=== PATIENT | female | born 1995 | race Caucasian/White ===

== ENCOUNTER 2020-09-08 01:03 | Emergency (ER) | payer OTHER ==
[2020-09-08] MEDS ORDERED: NORMAL SALINE 1000 ML 1,000 ML IV ONE (01:44)
[2020-09-08] MEDS ORDERED: METOCLOPRAMIDE HCL ORAL SOLN 10 MG/10 ML UDCUP PO ONE (01:45)
--- NOTE | 2020-09-08 01:48 | ER Document Report ---
ED Medical Screen (RME) - General Chief Complaint: Abdominal Pain Stated Complaint: ABDOMINAL PAIN Time Seen by Provider: 09/08/20 01:43 Mode of Arrival: Ambulatory Information source: Patient Notes: 25-year-old primigravida female coming in today with sudden severe left-sided abdominal pain. It started this evening. She is 14 weeks . No contractions. No vaginal bleeding. States that she has had very bad nausea and vomiting during the first trimester. No fevers or chills. General: Nontoxic Cardiac regular rate and rhythm Pulmonary no distress Mild left-sided abdominal tenderness No neuro deficits I have greeted and performed a rapid initial assessment of this patient. A comprehensive ED assessment and evaluation of the patient, analysis of test results and completion of the medical decision making process will be conducted by additional ED providers. Physical Exam - Vital signs Vitals: Temp Pulse Resp BP Pulse Ox 98.5 F 80 18 102/60 100 09/08/20 01:29 09/08/20 01:29 09/08/20 01:29 09/08/20 01:29 09/08/20 01:29 Course - Vital Signs Vital signs: Temp Pulse Resp BP Pulse Ox 98.5 F 80 18 102/60 100 09/08/20 01:29 09/08/20 01:29 09/08/20 01:29 09/08/20 01:29 09/08/20 01:29
[2020-09-08 02:33] LABS: APPEARANCE,URINE SLIGHTLY-CLOUDY; BILIRUBIN,URINE NEGATIVE (NEGATIVE); COLOR,URINE YELLOW; GLUCOSE, URINE NEGATIVE (NEGATIVE); KETONES,URINE NEGATIVE (NEGATIVE); PROTEIN,URINE NEGATIVE (NEGATIVE); URINE SPECIFIC GRAVITY 1.013; UROBILINOGEN,URINE NEGATIVE mg/dL (<2.0)
--- NOTE | 2020-09-08 02:53 | RADIOLOGY REPORT (SQ) ---
EXAM DESCRIPTION: US LIMITED COMPLETED DATE/TME: 09/08/2020 01:44 CLINICAL HISTORY: 25 years, Female, sudden left sided abd pain COMPARISON: None. TECHNIQUE: LIMITATIONS: None. FINDINGS: There is a live 14 week 4 day +/- 1 week IUP in transverse lie. cardiac activity was measured at 150 bpm. The placenta is anterior in location, with no evidence of abruption or previa. The cervix measures 2.6 cm in length and is closed. There is a normal amount of amniotic fluid. IMPRESSION: Unremarkable IUP. copyright 2010 [facility]- All Rights Reserved
[2020-09-08 03:04] LABS: ABSOLUTE BASOPHILS # (AUTO) 0.1 10^3/uL (0.0-0.2); ABSOLUTE EOSINOPHILS # (AUTO) 0.1 10^3/uL (0.0-0.6); ABSOLUTE LYMPHOCYTES (AUTO) 2.8 10^3/uL (0.5-4.7); ABSOLUTE MONOCYTES (AUTO) 0.9 10^3/uL (0.1-1.4); ABSOLUTE NEUT (AUTO) 9.2 10^3/uL (1.7-8.2); BASOPHILS % (AUTO) 0.4 % (0-2); EOSINOPHILS % (AUTO) 0.8 % (0-6); HEMOGLOBIN 12.1 g/dL (12.0-15.5); LYMPHOCYTES % (AUTO) 21.3 % (13-45); MEAN CORPUSCULAR HEMOGLOBIN 29.4 pg (27.0-33.4); MEAN CORPUSCULAR HGB CONC 33.5 g/dL (32.0-36.0); MEAN CORPUSCULAR VOLUME 88 fl (80-97); MONOCYTES % (AUTO) 6.9 % (3-13); PLATELET COUNT 355 10^3/uL (150-450); RED CELL DISTRIBUTION WIDTH 12.7 % (11.5-14.0); SEGMENTED NEUTROPHILS % (AUTO) 70.6 % (42-78); TOTAL CELLS COUNTED % (AUTO) 100 %; WHITE BLOOD COUNT 13.1 10^3/uL (4.0-10.5)
[2020-09-08 03:19] LABS: ALBUMIN 3.8 g/dL (3.5-5.0); ALKALINE PHOSPHATASE 54 U/L (38-126); ANION GAP 8 (5-19); ASPARTATE AMINO TRANSFERASE 27 U/L (14-36); BILIRUBIN,DIRECT 0.1 mg/dL (0.0-0.4); BILIRUBIN,TOTAL 0.2 mg/dL (0.2-1.3); BLOOD UREA NITROGEN 9 mg/dL (7-20); CARBON DIOXIDE 23 mmol/L (22-30); CHLORIDE 106 mmol/L (98-107); GLUCOSE 94 mg/dL (75-110); TOTAL PROTEIN 6.6 g/dL (6.3-8.2)
--- NOTE | 2020-09-08 06:06 | ER Document Report ---
ED GI/ - General Chief Complaint: Abdominal Pain Stated Complaint: ABDOMINAL PAIN Time Seen by Provider: 09/08/20 01:43 Mode of Arrival: Ambulatory Information source: Patient Notes: 25-year-old female who states she is approximately 14 weeks presents to the emergency room with sudden onset of left-sided abdominal pain that started last evening around 11:30 PM. She denies any trauma or injury. No medications for symptoms. Denies any vaginal bleeding, no vaginal discharge. No urinary symptoms. No fevers. States she is up-to-date with her OB care. 1 TRAVEL OUTSIDE OF THE [place] IN LAST 30 DAYS: No - Related Data Allergies/Adverse Reactions: No Known Allergies Allergy (Unverified 09/08/20 01:53) Home Medications: PER-NATALS Past Medical History - General Information source: Patient - Social History Smoking Status: Never Smoker Frequency of alcohol use: None Drug Abuse: None Family History: Reviewed & Not Pertinent Past Surgical History: Reports: Hx Breast Surgery - implants Review of Systems - Review of Systems Constitutional: No symptoms reported EENT: No symptoms reported Cardiovascular: No symptoms reported Respiratory: No symptoms reported Gastrointestinal: Abdominal pain. denies: Diarrhea, Nausea, Vomiting, Constipation Genitourinary: No symptoms reported Female Genitourinary: Musculoskeletal: No symptoms reported Skin: No symptoms reported Neurological/Psychological: No symptoms reported -: Yes All other systems reviewed and negative Physical Exam - Vital signs Vitals: Temp Pulse Resp BP Pulse Ox 98.5 F 80 18 102/60 100 09/08/20 01:29 09/08/20 01:29 09/08/20 01:29 09/08/20 01:29 09/08/20 01:29 - General General appearance: Appears well, Alert In distress: None - Respiratory Respiratory status: No respiratory distress Chest status: Nontender Breath sounds: Normal Chest palpation: Normal - Cardiovascular Rhythm: Regular Heart sounds: Normal auscultation Murmur: No - Abdominal Inspection: Gravid female Distension: No distension Bowel sounds: Normal Tenderness: Nontender Organomegaly: No organomegaly - Back Back: Normal, Nontender. No: CVA tenderness - Neurological Neuro grossly intact: Yes Cognition: Normal Orientation: AAOx4 [place] Coma Scale Eye Opening: Spontaneous Radha Coma Scale Verbal: Oriented Radha Coma Scale Motor: Obeys Commands Radha Coma Scale Total: 15 Speech: Normal Motor strength normal: LUE, RUE, LLE, RLE Sensory: Normal - Skin Skin Temperature: Warm Skin Moisture: Dry Skin Color: Normal Course - Re-evaluation Re-evalutation: 09/08/20 05:58 Patient is afebrile, nontoxic-appearing, pain-free on exam. Reviewed all labs and ultrasound results with patient and family. Can take Tylenol as needed for pain not to exceed 8 tablets in 24 hours. Follow-up with SUGGESTION CLERK next week as scheduled. Patient was given strict return to the emergency room guidelines. Return for any new or worsening symptoms. All questions were answered. Patient verbalized understanding and agrees with plan of care. - Vital Signs Vital signs: Temp Pulse Resp BP Pulse Ox 97.6 F 79 16 95/63 L 98 09/08/20 06:22 09/08/20 06:22 09/08/20 06:22 09/08/20 06:22 09/08/20 06:22 - Laboratory Result Diagrams: 09/08/20 02:45 09/08/20 02:45 Laboratory results interpreted by me: 09/08/20 09/08/20 09/08/20 02:09 02:45 02:45 WBC 13.1 H Absolute Neuts (auto) 9.2 H Sodium 136.9 L Beta HCG, Quant 54354.00 H Urine Ascorbic Acid 40 H - Diagnostic Test Radiology reviewed: Reports reviewed Discharge - Discharge Clinical Impression: Abdominal pain affecting Condition: Stable Disposition: HOME, SELF-CARE Instructions: Pelvic Pain in ([facility]) Additional Instructions: Tylenol as needed for pain not to exceed 8 tablets in 24 hours. Follow-up with your SUGGESTION CLERK as scheduled. Return to the emergency room for any new or worsening symptoms.
[2020-09-08 06:24] VITALS: BP 95/63
== END 2020-09-08 06:24 | disposition home or self-care (01) ==
LOC: ER 01:03
DX: O26.892 Other specified pregnancy related conditions, second trimester (principal); R10.9 Unspecified abdominal pain; Z79.899 Other long term (current) drug therapy; Z3A.14 14 weeks gestation of pregnancy
CPT/HCPCS: 36415; 76815; 80053; 81001; 84702; 85025; 86900; 86901; 99285